=== PATIENT | female | born 1985 | race Hispanic/Latino ===

== ENCOUNTER 2021-04-07 12:52 | Emergency (ER) | payer OTHER ==
[~2021-04-07] VITALS: Ht 157.5 cm; Wt 75.3 kg
[2021-04-07] MEDS ORDERED: KETOROLAC TROMETHAMINE 60 MG/2 ML VIAL IM ONE (14:00)
[2021-04-07] MEDS ORDERED: HYDROCODONE/APAP 7.5MG-325MG 1 EA TAB PO PRN (14:00)
== END 2021-04-07 15:09 | disposition home or self-care (01) ==
LOC: ER 13:54
DX: K61.0 Anal abscess (principal)
CPT/HCPCS: 99283; J1885